=== PATIENT | male | born 1975 | race Two or more races ===

== ENCOUNTER 2017-07-09 21:52 | Emergency (ER) | payer SELFPAY ==
[~2017-07-09] VITALS: Ht 167.6 cm; Wt 77.1 kg
== END 2017-07-10 01:58 | disposition home or self-care (01) ==
LOC: CED 21:52
DX: J06.9 Acute upper respiratory infection, unspecified (principal); J45.909 Unspecified asthma, uncomplicated; F17.210 Nicotine dependence, cigarettes, uncomplicated
CPT/HCPCS: 94640; 99283